=== PATIENT | male | born 1975 | race African-American/Black ===

== ENCOUNTER 2022-12-05 14:43 | Inpatient (IN) | payer OTHER ==
[2022-12-05] MEDS ORDERED: VANCOMYCIN 1 GM in D5W (PRE-DOCKED) 1,000 MG/250 ML IVPB ONE (15:33)
[2022-12-05] MEDS ORDERED: ACETAMINOPHEN 1000 MG/100 ML BAG IVPB ONE (15:33)
[2022-12-05] MEDS ORDERED: AMPICILLIN NA/SULBACTAM NA 3 GM in SODIUM CHLORIDE 100 ML IVPB ONE (15:33)
[2022-12-05] MEDS ORDERED: ACETAMINOPHEN INJECTION 100 ML IVPB ONE (15:41)
[2022-12-05] MEDS ORDERED: VANCOMYCIN/WATER FOR INJ (PEG) 1,000 MG/200 ML BAG IVPB ONE (15:42)
[2022-12-05 16:23] LABS: BASO % 0.7 % (0-2.0); EOS % 1.7 % (0-4.5); HEMATOCRIT 40.5 % (35.4-49); HEMOGLOBIN 13.4 GM/dL (11.7-16.9); LYMPH % 34.6 % (8-40); MCH 30.8 pg (25.7-33.7); MCHC 33.2 g/dl (32.0-35.9); MEAN CELL VOLUME 92.7 fl (80-96); MEAN PLT VOLUME 7.2 fl (7.5-11.1); MONO % 6.4 % (3.8-10.2); NEUT % 56.6 % (42.8-82.8); PLATELET COUNT 324 10^3/uL (134-434); RBC 4.37 M/mm3 (4.00-5.60); RDW 13.6 % (11.9-15.9); WHITE BLOOD COUNT 7.7 K/mm3 (4.0-10.0)
[2022-12-05 16:36] LABS: INR 1.24 (0.83-1.09); PROTHROMBIN TIME (PATIENT) 14.4 SEC (9.7-13.0)
[2022-12-05 16:39] LABS: ACTIVATED PTT 36.9 SECONDS (25.2-36.5)
[2022-12-05 16:41] LABS: CALCIUM 9.7 mg/dL (8.5-10.1)
[2022-12-05 16:42] LABS: ALBUMIN 3.8 g/dl (3.4-5.0); BLOOD UREA NITROGEN 9.4 mg/dL (7-18)
[2022-12-05 16:46] LABS: BILIRUBIN,TOTAL 0.5 mg/dL (0.2-1); TOT PROT 7.6 g/dl (6.4-8.2)
[2022-12-05] MEDS ORDERED: oxyCODONE HCL 5 MG TABLET PO PRN (22:12)
[2022-12-06 00:12] VITALS: RESP 18; BMI 24.1
[2022-12-06] MEDS ORDERED: ALBUTEROL SO4 HFA INHALER IH PRN (01:58)
[2022-12-06] MEDS: POLYETHYLENE GLYCOL (HEALTHYLAX) 3350 17 GM PACKET PO SCH ×3 (03:15→22:10)
[2022-12-06] MEDS: ACETAMINOPHEN 325 MG TABLET (FP) PO PRN ×2 (04:15→15:06)
[2022-12-06] MEDS: DOCUSATE SODIUM 100 MG CAPSULE (FP) PO SCH (09:46)
[2022-12-06] MEDS: PANTOPRAZOLE SODIUM 40 MG VIAL IVPUSH SCH (09:46)
[2022-12-06] MEDS: NICOTINE 7 MG/24 HOURS TOPICAL PATCH TD SCH (09:47)
[2022-12-06] MEDS ORDERED: ENOXAPARIN NA (PORCINE) 40 MG/0.4 ML DISP.SYRIN SQ SCH (10:00)
[2022-12-06 10:17] LABS: BASO % 0.7 % (0-2.0); EOS % 1.8 % (0-4.5); HEMATOCRIT 39.5 % (35.4-49); HEMOGLOBIN 12.8 GM/dL (11.7-16.9); LYMPH % 32.5 % (8-40); MCH 30.3 pg (25.7-33.7); MCHC 32.5 g/dl (32.0-35.9); MEAN CELL VOLUME 93.2 fl (80-96); MEAN PLT VOLUME 7.7 fl (7.5-11.1); MONO % 6.2 % (3.8-10.2); NEUT % 58.8 % (42.8-82.8); PLATELET COUNT 335 10^3/uL (134-434); RBC 4.24 M/mm3 (4.00-5.60); RDW 13.7 % (11.9-15.9); WHITE BLOOD COUNT 7.2 K/mm3 (4.0-10.0)
[2022-12-06 10:41] LABS: ALBUMIN 3.4 g/dl (3.4-5.0); BLOOD UREA NITROGEN 8.9 mg/dL (7-18); CALCIUM 9.2 mg/dL (8.5-10.1); MAGNESIUM 2.1 mg/dL (1.8-2.4)
[2022-12-06 10:44] LABS: PHOSPHOROUS 2.9 mg/dL (2.5-4.9)
[2022-12-06 10:46] LABS: BILIRUBIN,TOTAL 0.6 mg/dL (0.2-1)
[2022-12-06] MEDS: TIOTROPIUM BROMIDE 2.5 MCG (SPIRIVA) RESPIMAT INHALER IH SCH (11:22)
[2022-12-06 11:50] LABS: ERYTHROCYTE SEDIMENTATION RATE 20 mm/hr (0-10)
[2022-12-06 16:00] LABS: PH,URINE 6.5 (5.0-8.0); URINE APPEARANCE CLEAR; URINE BILIRUBIN NEGATIVE (NEGATIVE); URINE COLOR YELLOW; URINE GLUCOSE (UA) NEGATIVE (NEGATIVE); URINE KETONE NEGATIVE (NEGATIVE); URINE LEUK ESTERASE NEGATIVE (NEGATIVE); URINE NITRITE NEGATIVE (NEGATIVE); URINE PROTEIN NEGATIVE (NEGATIVE); URINE UROBILINOGEN 0.2 mg/dL (0.2-1.0)
[2022-12-06] MEDS ORDERED: VANCOMYCIN/WATER 1,250 MG/250 ML BAG (RESTRICTED TO ID ONLY) IVPB SCH (16:00)
[2022-12-06] MEDS ORDERED: VANCOMYCIN/WATER 1250 MG 1,250 MG/250 ML BAG IVPB ONE (16:00)
[2022-12-06] MEDS: LISINOPRIL 20 MG TABLET PO SCH (19:24)
[2022-12-06] MEDS: DOXYCYCLINE HYCLATE 100 MG CAPSULE PO SCH (19:24)
[2022-12-06] MEDS ORDERED: HYDROCORTISONE ACETATE 25 MG/SUPP.RECT RC SCH (22:00)
[2022-12-07] MEDS: LISINOPRIL 20 MG TABLET PO SCH (09:23)
[2022-12-07] MEDS: POLYETHYLENE GLYCOL (HEALTHYLAX) 3350 17 GM PACKET PO SCH (09:23)
[2022-12-07] MEDS: NICOTINE 7 MG/24 HOURS TOPICAL PATCH TD SCH (09:23)
[2022-12-07] MEDS: DOXYCYCLINE HYCLATE 100 MG CAPSULE PO SCH (09:23)
[2022-12-07] MEDS: DOCUSATE SODIUM 100 MG CAPSULE (FP) PO SCH (09:23)
[2022-12-07] MEDS: PANTOPRAZOLE SODIUM 40 MG VIAL IVPUSH SCH (09:23)
[2022-12-07] MEDS: TIOTROPIUM BROMIDE 2.5 MCG (SPIRIVA) RESPIMAT INHALER IH SCH (09:32)
[2022-12-07] MEDS ORDERED: ENOXAPARIN NA (PORCINE) 40 MG/0.4 ML DISP.SYRIN SQ SCH (10:00)
[2022-12-07 10:52] VITALS: BP 130/90; PULSE 90; TEMP 97.7
[2022-12-11 00:38] LABS: HIV INTERPRETATION NEGATIVE (NEGATIVE)
== END 2022-12-07 11:07 | disposition home or self-care (01) | DRG 383 ==
LOC: JER 14:43 → JERBED 20:54 → J8W 23:18
PROVIDERS: ADMIT Internal Medicine; ATTEND Nurse Practitioner Acute Care
DX: L03.111 Cellulitis of right axilla (principal); I10 Essential (primary) hypertension; A49.02 Methicillin resistant Staphylococcus aureus infection, unspecified site; J45.909 Unspecified asthma, uncomplicated; R07.9 Chest pain, unspecified
CPT/HCPCS: 36415; 71045-TC-FY; 80053; 81003; 83735; 84100; 84484; 85025; 85610; 85651; 85730; 86140; 86803; 86850; 86900; 86901; 87040; 87081; 87086; 87389; 87522; 87902; 93005; 93010; 93971; 97116-GP; 97161-GP; 99285-25; C9803-CS; U0003; U0005